=== PATIENT | male | born 1995 | race African-American/Black ===

== ENCOUNTER 2019-07-26 16:07 | Emergency (ER) | payer BC, OTHER ==
[~2019-07-26] VITALS: Ht 177 cm; Wt 79.8 kg
[2019-07-26] MEDS ORDERED: L.E.T. SYRINGE 5 ML TOP ONE (16:30)
--- NOTE | 2019-07-26 17:52 | ED General ---
General Chief Complaint: Skin/Wound Problems Stated Complaint: CYST Nursing Triage Note: Patient states he has had swelling on his groin for approximately 2 months, states within the last couple of days the cyst has gotten bigger and painful, states it hurts to walk. Nursing Sepsis Screen: No Definite Risk Source of Information: Patient Exam Limitations: No Limitations Allergies and Home Medications Allergies Coded Allergies: No Known Drug Allergies (Unverified , 07/26/19) Past Dqmwhqq-Bkoknn-Pzvndn Hx Patient Social History Alcohol Use: Denies Use Recreational Drug Use: No Smoking Status: Current Everyday Smoker Type Used: Cigarettes 2nd Hand Smoke Exposure: Yes Recent Foreign Travel: No Contact w/Someone Who Travel: No Recent Infectious Disease Expo: No Recent Hopitalizations: No Physical Abuse: No Sexual Abuse: No Mistreated: No Fear: No Seasonal Allergies Seasonal Allergies: No Past Medical History Surgeries: No Respiratory: No Cardiac: No Neurological: No Genitourinary: No Gastrointestinal: No Musculoskeletal: No Endocrine: No HEENT: No Cancer: No Psychosocial: No Integumentary: No Physical Exam Vital Signs Vital Signs - First Documented 07/26/19 16:10 Temp 36.4 Pulse 96 Resp 16 B/P (MAP) 127/76 (93) Pulse Ox 100 O2 Delivery Room Air Capillary Refill : Less Than 3 Seconds Height, Weight, BMI Height: '" Weight: lbs. oz. kg; 25.00 BMI Method: Progress/Results/Core Measures Suspected Sepsis Recent Fever Within 48 Hours: No Infection Criteria Present: None New/Unexplained Altered Menta: No Sepsis Screen: No Definite Risk SIRS Temperature: Pulse: 96 Respiratory Rate: 16 Blood Pressure 127 /76 Mean: 93 Results/Orders My Orders Orders - ELSI DAVID MD Let Solution (Let Solution) (07/26/19 16:30) Wound Culture (07/26/19 16:27) Hydrocodone/Apap 5/325 Tablet (Lortab 5 (07/26/19 18:00) Medications Given in ED Current Medications Medications Dose Ordered Sig/Ulices Route Start Time Stop Time Status Last Admin Dose Admin Tetracaine/ Epinephrine/ Lidocaine 1 ea ONCE ONCE TOP 07/26/19 16:30 07/26/19 16:31 DC 07/26/19 16:34 1 EA Vital Signs/I&O 07/26/19 16:10 Temp 36.4 Pulse 96 Resp 16 B/P (MAP) 127/76 (93) Pulse Ox 100 O2 Delivery Room Air Capillary Refill : Less Than 3 Seconds Blood Pressure Mean: 93 POS Departure Impression Primary Impression: Abscess of groin, right Additional Impression: Encounter for incision and drainage procedure Disposition: 01 HOME, SELF-CARE Condition: Improved Departure-Patient Inst. Decision time for Depature: 17:49 Referrals: NO,LOCAL PHYSICIAN (PCP/Family) Primary Care Physician Patient Instructions: Abscess Incision and Drainage (DC) Add. Discharge Instructions: Keep the wound covered as long as it is draining. Soak in a bathtub with chlorhexidine soap for 20-30 minutes twice daily until the wound stops draining and closes up. Complete your antibiotic as prescribed. Return to the emergency room if you have any worsening of symptoms or develop new symptoms such as fever. For pain you may take ibuprofen up to 600 mg every 6 hours as needed and/or Tylenol (acetaminophen) up to 1000 mg every 6 hours as needed. All discharge instructions reviewed with patient and/or family. Voiced understanding. Scripts Sulfamethoxazole/Trimethoprim (Bactrim Ds Tablet) 1 Each Tablet 1 EACH PO BID, #14 TAB Prov: ELSI DAVID MD 07/26/19 ELSI DAVID MD Jul 26, 2019 17:52 POS
[2019-07-26] MEDS ORDERED: SULF1TAB35 PO (18:00)
[2019-07-26] MEDS ORDERED: HYDROcodone/APAP 5 MG/325 MG (LORTAB) TAB PO ONE (18:00)
[2019-07-26 18:15] VITALS: BP 131/71
== END 2019-07-26 18:15 | disposition home or self-care (01) ==
LOC: ER FS 16:08
DX: L02.214 Cutaneous abscess of groin (principal); F17.210 Nicotine dependence, cigarettes, uncomplicated
CPT/HCPCS: 10060; 87070; 87205

== ENCOUNTER 2022-06-15 10:42 | Emergency (ER) | payer SELFPAY ==
[~2022-06-15] VITALS: Ht 180.3 cm; Wt 83.3 kg
[~2022-06-15 10:42] MED LIST: SULF1TAB38 PO
[2022-06-15 11:03] VITALS: BP 113/58
--- NOTE | 2022-06-15 11:03 | ED Lower Extremity ---
General Chief Complaint: Lower Extremity Stated Complaint: RT LEG INJ Source: patient Exam Limitations: no limitations History of Present Illness Date Seen by Provider: Jun 15, 2022 Time Seen by Provider: 11:01 Initial Comments 27-year-old male who is otherwise healthy presents for right ankle injury. He was playing basketball on Tuesday and twisted his ankle. He has pain diffusely about his right ankle and his proximal outer leg on the right side. No other injuries. He has been icing it, elevating it and the swelling has improved somewhat however he continues to have significant pain. He is bearing weight but has a significant limp. Allergies and Home Medications Allergies Coded Allergies: No Known Drug Allergies (Unverified , 07/26/19) Patient Home Medication List Home Medication List Reviewed: Yes Sulfamethoxazole/Trimethoprim (Bactrim Ds Tablet) 1 Each Tablet, 1 EACH PO BID Prescribed by: ELSI RIVAS on 07/26/19 1800 Review of Systems Constitutional: no symptoms reported EENTM: no symptoms reported Respiratory: no symptoms reported Cardiovascular: no symptoms reported Gastrointestinal: no symptoms reported Genitourinary: no symptoms reported Musculoskeletal: joint pain Skin: no symptoms reported Psychiatric/Neurological: No Symptoms Reported Past Wjdexor-Fczdea-Fvzusu Hx Patient Social History Tobacco Use?: No Use of E-Cig and/or Vaping dev: No Substance use?: No Alcohol Use?: No Seasonal Allergies Seasonal Allergies: No Past Medical History Surgeries: No Respiratory: No Cardiac: No Neurological: No Genitourinary: No Gastrointestinal: No Musculoskeletal: No Endocrine: No HEENT: No Cancer: No Psychosocial: No Integumentary: No Family Medical History Reviewed Nursing Family Hx No Pertinent Family Hx Physical Exam Vital Signs Vital Signs - First Documented 06/15/22 11:03 Temp 36.6 Pulse 51 Resp 18 B/P (MAP) 113/58 (76) Pulse Ox 97 O2 Delivery Room Air Capillary Refill : Height, Weight, BMI Height: '" Weight: lbs. oz. kg; 25.00 BMI Method: General Appearance: WD/WN, no apparent distress HEENT: normal ENT inspection, pharynx normal Neck: non-tender, supple, normal inspection Cardiovascular: regular rate, rhythm, no edema, no murmur Respiratory: chest non-tender, lungs clear, normal breath sounds, no respiratory distress, no accessory muscle use Gastrointestinal: normal bowel sounds, non tender, soft, no organomegaly Back: normal inspection, no vertebral tenderness Hips: bilateral hip non-tender, bilateral hip normal inspection, bilateral hip normal range of motion, bilateral hip no evidence of injury Legs: right leg bone tenderness (Proximal near the fibular head. He is deformity.) Knees: bilateral knee non-tender, bilateral knee normal inspection, bilateral knee normal range of motion, bilateral knee no evidence of injury Ankles: right ankle pain (Tenderness palpation diffusely about the ankle. There is mild swelling near the lateral malleolus, minimal near the medial malleolus. Neurovascular motor and sensory intact) Feet: bilateral foot non-tender, bilateral foot normal inspection, bilateral foot normal range of motion, bilateral foot no evidence of injury Neurologic/Psychiatric: alert, normal mood/affect, oriented x 3 Skin: normal color, warm/dry Lymphatic: no adenopathy Progress/Results/Core Measures Results/Orders My Orders Orders - BOOKER LASSITER DO Ankle 3 View Right (06/15/22 11:00) Tibia Fibula 2 View Right (06/15/22 11:00) Vital Signs/I&O 06/15/22 11:03 Temp 36.6 Pulse 51 Resp 18 B/P (MAP) 113/58 (76) Pulse Ox 97 O2 Delivery Room Air Departure Communication (Admissions) Patient is hemodynamically stable. X-rays of the ankle, tib-fib are negative. Discharged in stable condition with supportive care. Impression Primary Impression: Right ankle sprain Qualified Codes: S93.401A - Sprain of unspecified ligament of right ankle, initial encounter Additional Impression: Right leg pain Disposition: 01 HOME, SELF-CARE Condition: Stable Departure-Patient Inst. Referrals: NO,LOCAL PHYSICIAN (PCP/Family) Primary Care Physician Patient Instructions: Ankle Sprain Add. Discharge Instructions: Continue to use Motrin and Tylenol as needed for pains. Elevate the extremity to reduce swelling and use ice as needed. Return to the emergency department for any severe concerns. Follow-up with your primary physician for any nonemergent needs. All discharge instructions reviewed with patient and/or family. Voiced understanding. BOOKER LASSITER DO Jun 15, 2022 11:03
--- NOTE | 2022-06-15 11:43 | Diagnostic Imaging Report ---
INDICATION: Right ankle injury with pain AP, oblique and lateral views of the right ankle are obtained. No previous studies available at this time for comparison. No acute fracture or dislocation is identified. There does appear to be mild widening of the medial ankle mortise. There is cortical thickening of the lateral tibial shaft. No lytic or sclerotic lesion is identified. IMPRESSION: Widening of the medial ankle mortise could indicate underlying ligamentous injury. Otherwise, no acute osseous abnormality is identified. Dictated by: Dictated on workstation # [id number]
--- NOTE | 2022-06-15 11:59 | Diagnostic Imaging Report ---
INDICATION: Pain COMPARISON: Imaging from the same date TECHNIQUE: 2 radiographs of the right tibia and fibula dated 06/15/2022. FINDINGS: No acute fracture or dislocation. No destructive osseous process. Mild calcifications are noted along the lateral aspect of the distal tibia at the expected location of the syndesmosis. No suspicious radiopaque foreign body. IMPRESSION: No acute osseous abnormality. Calcifications medial to the distal tibia at the expected location of the syndesmosis is favored related to dystrophic calcifications from remote injury to the syndesmosis. Dictated by: Dictated on workstation # [id number]
== END 2022-06-15 11:30 | disposition home or self-care (01) ==
LOC: EDUNIT# 10:42 → ER FS 10:44
DX: S93.401A Sprain of unspecified ligament of right ankle, initial encounter (principal); Z28.310 Unvaccinated for COVID-19; X50.1XXA Overexertion from prolonged static or awkward postures, initial encounter; Y93.67 Activity, basketball
CPT/HCPCS: 73590; 73610

== ENCOUNTER 2022-08-26 12:38 | Emergency (ER) | payer SELFPAY ==
--- NOTE | 2022-08-26 12:44 | ED EENT ---
History of Present Illness General Chief Complaint: Dental Problems/Pain Stated Complaint: DENTAL PAIN History of Present Illness Date Seen by Provider: Aug 26, 2022 Time Seen by Provider: 12:44 Initial Comments 27-year-old male is here with complaints of right lower molar tooth pain which patient states is worsening, and patient is unable to get into a dental appoin tment. Patient states that this has been going on for the past 2 months almost. Patient has tried waiting in line for emergency dental care but they have not had any appointment with them for him. Denies fever. Allergies and Home Medications Allergies Coded Allergies: No Known Drug Allergies (Unverified , 07/26/19) Patient Home Medication List Home Medication List Reviewed: Yes Sulfamethoxazole/Trimethoprim (Bactrim Ds Tablet) 1 Each Tablet, 1 EACH PO BID Prescribed by: ELSI RIVAS on 07/26/19 1800 Review of Systems Review of Systems Constitutional: no symptoms reported Eyes: No Symptoms Reported Ears: No Symptoms Reported Nose: no symptoms reported Mouth: pain (dental) Throat: no symptoms reported Respiratory: no symptoms reported Cardiovascular: no symptoms reported Gastrointestinal: no symptoms reported Musculoskeletal: no symptoms reported Skin: no symptoms reported Neurological: No Symptoms Reported Hematologic/Lymphatic: No Symptoms Reported Immunological/Allergic: no symptoms reported Past Zqnmavm-Ypgtet-Epmcuo Hx Seasonal Allergies Seasonal Allergies: No Past Medical History Surgeries: No Respiratory: No Cardiac: No Neurological: No Genitourinary: No Gastrointestinal: No Musculoskeletal: No Endocrine: No HEENT: No Cancer: No Psychosocial: No Integumentary: No Family Medical History No Pertinent Family Hx Physical Exam Vital Signs Vital Signs - First Documented 08/26/22 12:43 Temp 35.8 Pulse 55 Resp 16 B/P (MAP) 134/73 (93) Pulse Ox 100 O2 Delivery Room Air Height, Weight, BMI Height: '" Weight: lbs. oz. kg; 25.00 BMI Method: General Appearance: WD/WN, mild distress Nose: normal inspection Mouth/Throat: dental tenderness ( Lower right side molar tooth shows dental cavity with erosion into the tooth) Neck: non-tender, full range of motion, supple, normal inspection Neurologic/Psychiatric: alert, normal mood/affect, oriented x 3 Skin: normal color Progress/Results/Core Measures Results/Orders Vital Signs/I&O 08/26/22 12:43 Temp 35.8 Pulse 55 Resp 16 B/P (MAP) 134/73 (93) Pulse Ox 100 O2 Delivery Room Air Progress Progress Note : Progress Note 1. DENTAL CARIES: - Toradol 30mg im STAT - AUgmentin prescription bid for 7 days -Tylenol and ibuprofen as needed pain - Dental clinic appointment [facility] - Advised good oral hygiene Departure Impression Primary Impression: Dental caries Disposition: HOME, SELF-CARE Condition: Stable Departure-Patient Inst. Referrals: NO,LOCAL PHYSICIAN (PCP/Family) Primary Care Physician Patient Instructions: Dental Pain, Tooth Decay ED Add. Discharge Instructions: - AUgmentin prescription bid for 7 days -Tylenol and ibuprofen as needed pain - Dental clinic appointment [facility] - Advised good oral hygiene All discharge instructions reviewed with patient and/or family. Voiced understanding. Scripts Amoxicillin/Potassium Clav (Amox Tr-K Clv 875-125 mg Tab) 875 Mg-125 Mg Tablet 1 EACH PO BID for 7 Days, #14 TAB Prov: MARIAELENA VALIENTE MD 08/26/22 MARIAELENA VALIENTE MD Aug 26, 2022 12:44
[2022-08-26] MEDS ORDERED: AMOX1TAB12 PO (13:09)
[2022-08-26 13:12] VITALS: BP 134/73
[2022-08-26] MEDS ORDERED: KETOROLAC 30 MG/ML VIAL IM ONE (13:15)
== END 2022-08-26 13:20 | disposition home or self-care (01) ==
LOC: EDUNIT# 12:38 → ER FS 12:39
DX: K02.9 Dental caries, unspecified (principal); Z28.310 Unvaccinated for COVID-19
CPT/HCPCS: 99284